=== PATIENT | male | born 1950 | race Caucasian/White ===

== ENCOUNTER → 2017-06-23 | Day surgery (SDC) | payer OTHER ==
[2017-06-16 08:25] VITALS: Ht 177.8 cm; Wt 127.3 kg
[~2017-06-23] VITALS: Ht 177.8 cm; Wt 127.3 kg
[~2017-06-23] MED LIST: CARV6.252 PO; ENOX120I SQ; FLUO40CA8 PO; FURO40TA3 PO; LIDOCAINE HCL 2% 2 ML VIAL (20MG/ML) ONE; LISI-461 PO; PROPOFOL IV EMULSION 10 MG/ML 20 ML VIAL IV ONE; ROSU5TAB PO; SODIUM CHLORIDE 0.9% 500ML 500 ML IV ONE; WARF1TAB6 PO; WARF7.5T4 PO
--- NOTE | 2017-06-23 08:54 | Endo History and Physical ---
History & Physical Date of Service: Jun 23, 2017. Chief Complaint: History of polyps Referring Physician: Dr. Jose Gore History of Present Illness 67 yo presenting for surveillance of colonic adenomatous polyps. On blood thinners, stopped with bid lovenox 2 days ago. Asymptomatic from GI standpoint Past Medical History Diabetes, Reflux, Sleep Apnea, Hypertension, Thrombophlebitis Past Surgical History Hx Cardiac Surgery: No Hx Internal Defibrillator: No Hx Pacemaker: No Hx Abdominal Surgery: No Hx of Implantable Prosthesis: No Hx Post-Op Nausea and Vomiting: No Hx Cancer Surgery: No Hx Thoracic Surgery: No Hx Orthopedic: Yes (RT/LEFT CTR, KNEE CYST REMOVED) Hx Urinary Tract Surgery: No Family History None Social History Smoking Status: Former Smoker Hx Substance Use: No Hx Alcohol Use: Yes (OCCASIONALLY) Allergies Coded Allergies: No Known Allergies (Verified , 06/23/17) Current Medications Reported Home Medications Medications Dose Route/Sig Max Daily Dose Days Date Category Lovenox (Enoxaparin Sodium) 120 Mg/0.8 Ml Inj 120 Mg SQ Q12H 06/23/17 Reported Jantoven (Warfarin Sodium) 7.5 Mg Tab 7.5 Mg PO Q2D 06/16/17 Reported Jantoven (Warfarin Sodium) 1 Mg Tab 0.5 Mg PO Q2D 06/16/17 Reported Crestor (Rosuvastatin Calcium) 5 Mg Tab 5 Mg PO 3XWK 06/16/17 Reported Zestril (Lisinopril) 10 Mg Tab 10 Mg PO QAM 06/16/17 Reported Prozac (Fluoxetine HCl) 40 Mg Cap 40 Mg PO QAM 06/16/17 Reported Coreg (Carvedilol) 6.25 Mg Tab 6.25 Mg PO BID 02/05/14 Reported Lasix (Furosemide) 40 Mg Tab 40 Mg PO QAM 02/05/14 Reported Vital Signs Weight (Kilograms): 127.27 Height (Feet): 5 Height (Inches): 10 Date Time Temp Pulse Resp B/P (MAP) Pulse Ox O2 Delivery O2 Flow Rate FiO2 06/23/17 08:48 37 56 20 125/73 (90) 96 Room Air Physical Exam General Appearance: WD/WN, no apparent distress, + obese Respiratory/Chest: Auscultation: breath sounds normal, CTA except as noted, no wheezing Cardiovascular: Apical Impulse: not displaced Heart Auscultation: RRR, normal S1, normal S2 Abdomen: Bowel Sounds: normal Inspection & Palpation: soft, non-distended Assessment and Plan 67 yo presenting for surveillance of colonic adenomatous polyps. -Plan for Colonoscopy for polyp follow up.
--- NOTE | 2017-06-23 09:35 | GI REPORT ---
Procedure Date: 06/23/2017 9:06 AM Procedure: Colonoscopy Indications: High risk colon cancer surveillance: Personal history of colonic polyps Medicines: Monitored Anesthesia Care Complications: No immediate complications. Estimated blood loss: None. Estimated Blood Loss: Estimated blood loss: none. Procedure: Pre-Anesthesia Assessment: - Pre-Anesthesia Assessment: - Prior to the procedure, a History and Physical was performed, and patient medications, allergies and sensitivities were reviewed. The patient's tolerance of previous anesthesia was reviewed. Please see [facility] for complete details. - The risks and benefits of the procedure and the sedation options and risks were discussed with the patient. All questions were answered and informed consent was obtained. - Patient identification and proposed procedure were verified prior to the procedure by the physician and the nurse. The procedure was verified in the pre-procedure area in the procedure room. After obtaining informed consent, the endoscope was passed carefully and meticuously under direct vision and only advanced when the lumen was clearly identified, C02 insuflation was utilized throughout the entirity of the procedure. Throughout the procedure, the patient's blood pressure, pulse, and oxygen saturations were monitored continuously. After I obtained informed consent, the scope was passed under direct vision. Throughout the procedure, the patient's blood pressure, pulse, and oxygen saturations were monitored continuously. The scope was introduced through the anus and advanced to the cecum, identified by appendiceal orifice and ileocecal valve. The colonoscopy was performed without difficulty. The patient tolerated the procedure well. The quality of the bowel preparation was fair. Findings: A 6 mm polyp was found in the descending colon. The polyp was sessile. The polyp was removed with a cold snare. Resection and retrieval were complete. To prevent bleeding post-intervention, one hemostatic clip was successfully placed (MR conditional). There was no bleeding during, or at the end, of the procedure. A 3 mm polyp was found in the rectum. The polyp was sessile. The polyp was removed with a jumbo cold forceps. Resection and retrieval were complete. Multiple small-mouthed diverticula were found in the sigmoid colon. Internal hemorrhoids were found during retroflexion. Impression: - Preparation of the colon was fair. - One 6 mm polyp in the descending colon, removed with a cold snare. Resected and retrieved. Clip (MR conditional) was placed. - One 3 mm polyp in the rectum, removed with a jumbo cold forceps. Resected and retrieved. - Diverticulosis in the sigmoid colon. - Internal hemorrhoids. Recommendation: - Await pathology results. - Discharge patient to home (with escort). - Repeat colonoscopy in 5 years for surveillance based on pathology results. - Return to referring physician as previously scheduled. Eron Ochoa MD 06/23/2017 9:34:41 AM This report has been signed electronically. Note Initiated On: 06/23/2017 9:06 AM I attest to the content of the Intraoperative Record and orders documented therein, exceptions below
--- NOTE | 2017-06-23 09:43 | Discharge Instructions ---
Endoscopy Patient Instructions Date / Procedure(s) Performed Jun 23, 2017. Colonoscopy Allergy Information Coded Allergies: No Known Allergies (Verified , 06/23/17) Discharge Date / Findings Jun 23, 2017. Findings: A 6 mm polyp was found in the descending colon. The polyp was sessile. The polyp was removed with a cold snare. Resection and retrieval were complete. To prevent bleeding post-intervention, one hemostatic clip was successfully placed (MR conditional). There was no bleeding during, or at the end, of the procedure. A 3 mm polyp was found in the rectum. The polyp was sessile. The polyp was removed with a jumbo cold forceps. Resection and retrieval were complete. Multiple small-mouthed diverticula were found in the sigmoid colon. Internal hemorrhoids were found during retroflexion. Impression: - Preparation of the colon was fair. - One 6 mm polyp in the descending colon, removed with a cold snare. Resected and retrieved. Clip (MR conditional) was placed. - One 3 mm polyp in the rectum, removed with a jumbo cold forceps. Resected and retrieved. - Diverticulosis in the sigmoid colon. - Internal hemorrhoids. Recommendation: - Await pathology results. - Discharge patient to home (with escort). - Repeat colonoscopy in 5 years for surveillance based on pathology results. - Return to referring physician as previously scheduled. - Resume anticoagulation per Managing providers. Medication Instructions Stopped Medication(s): Coumadin was stopped and bridged with Lovenox. Provider Instructions Activity Restrictions - No exercising or heavy lifting for 24 hours. - Do not drink alcohol the day of the procedure. - Do not drive a car or operate machinery until the day after the procedure. - Do not make any important decisions or sign important papers in 24 hours after the procedure. Following Day: - Return to full activity which may include returning to work/school. Diet Start your diet with liquids and light foods (jello, soup, juice, toast). Then eat your usual diet if not nauseated. Treatment For Common After Affects For mild abdominal pain, bloating, or excessive gas: - Rest - Eat lightly - Lie on right side Follow-Up Information Follow-up with Dr. Jose Gore as scheduled Anesthesia Information What You Should Know You have had a procedure that required some medicine to reduce anxiety and discomfort. This treatment is called moderate sedation. After receiving the treatment, you may be sleepy, but you will be able to breathe on your own. The effects of the treatment may last for several hours. Follow these instructions along with Activity/Diet recommendations noted above: * Do NOT do anything where dizziness or clumsiness would be dangerous. * Rest quietly at home today, then you can be up and about tomorrow. * Have a responsible person stay with you the rest of today. * You may have had an I.V. today. If so, you may take the dressing off later today. Recommendations Call your doctor if: * Trouble breathing * Continuous vomiting for more than 24 hours * Temperature above 101 degrees * Severe abdominal pain or bloating * Pain not relieved by pain medicine ordered * There is increased drainage or redness from any incision * A large amount of rectal bleeding greater than 2-3 tablespoons. (If you had a polyp/s removed or have hemorrhoids, a small amount of blood - from the rectum is to be expected.) * You have any unanswered questions or concerns. IN THE EVENT OF A SERIOUS EMERGENCY, GO TO THE NEAREST EMERGENCY ROOM Your discharge instructions were prepared by provider Eron Ochoa. Patient Instructions Signature Page Elias Cerda Patient (or Guardian) Signature/Date: I have read and understand the instructions given to me by my caregivers. Caregiver/RN/Doctor Signature/Date: The above-named patient and/or guardian has received patient instructions on this date. + Original Patient Signature Page (only) stays with chart. Please make copy for patient.
--- NOTE | 2017-06-23 10:08 | Anesthesiology Progress Note ---
Anesthesia Post Op Note Date & Time Jun 23, 2017 at 10:08 Vital Signs Pain Intensity: 0 Vital Signs Past 12 Hours Date Time Temp Pulse Resp B/P (MAP) Pulse Ox O2 Delivery O2 Flow Rate FiO2 06/23/17 09:54 51 20 98/59 (72) 97 Room Air 06/23/17 09:38 53 20 104/52 (69) 95 Room Air 06/23/17 08:48 37 56 20 125/73 (90) 96 Room Air Notes Mental Status: alert / awake / arousable, participated in evaluation Pt Amnestic to Procedure: Yes Nausea / Vomiting: adequately controlled Pain: adequately controlled Airway Patency, RR, SpO2: stable & adequate BP & HR: stable & adequate Hydration State: stable & adequate Anesthetic Complications: no major complications apparent
[2017-06-23 10:09] VITALS: BP 117/58; PULSE 49; O2SAT 96
== END | disposition home or self-care (01) ==
LOC: C.GI 08:11
PROVIDERS: ATTEND Internal Medicine
DX: Z12.11 Encounter for screening for malignant neoplasm of colon (principal); D12.4 Benign neoplasm of descending colon; D12.8 Benign neoplasm of rectum; Z86.010 Personal history of colon polyps; K57.30 Diverticulosis of large intestine without perforation or abscess without bleeding; K64.8 Other hemorrhoids; I11.0 Hypertensive heart disease with heart failure; I50.9 Heart failure, unspecified; K21.9 Gastro-esophageal reflux disease without esophagitis; D68.51 Activated protein C resistance; E11.9 Type 2 diabetes mellitus without complications; G47.33 Obstructive sleep apnea (adult) (pediatric); E66.9 Obesity, unspecified; Z68.41 Body mass index [BMI] 40.0-44.9, adult; Z99.89 Dependence on other enabling machines and devices; Z86.711 Personal history of pulmonary embolism; Z86.72 Personal history of thrombophlebitis; Z87.891 Personal history of nicotine dependence; Z79.01 Long term (current) use of anticoagulants

== ENCOUNTER 2020-05-03 10:18 | Observation (INO) ==
--- NOTE | 2020-02-26 13:33 | PAT Medication Instructions ---
Medication Instructions Date of Service February 26, 2020 Home Medications digoxin 250 mcg PO QAM duloxetine 60 mg PO QAM ezetimibe 10 mg PO QAM furosemide 40 mg PO QAM glimepiride 1 mg PO QAM lisinopril 5 mg PO QAM paroxetine HCl 40 mg PO QAM warfarin 5 mg PO QAM ASK your prescriber and surgeon warfarin 5 mg PO QAM DO NOT take the morning of surgery furosemide 40 mg PO QAM glimepiride 1 mg PO QAM lisinopril 5 mg PO QAM Take morning of surgery With a small sip of water, OTHERWISE NOTHING TO EAT OR DRINK AFTER MIDNIGHT: digoxin 250 mcg PO QAM duloxetine 60 mg PO QAM ezetimibe 10 mg PO QAM paroxetine HCl 40 mg PO QAM Other Notes If you have any questions please call us at [phone] or [phone] or [phone] or [phone]
--- NOTE | 2020-02-28 10:43 | Anesthesiology Consultation ---
Date of Service February 28, 2020 Assessment & Plan (1) Encounter for pre-operative examination: - Preop CXR: possible nodule. Awaiting response from PCP if further imaging needed prior to surgery from their perspective. - Per assessment on 02/27: Travel screen negative. No known COVID-19 positive contacts or current COVID-19 related symptoms. Surgeon arranging preop COVID testing (scheduled 03/06; [place]). Awaiting results. - Check BSG, coags AM DOS (warfarin instructions per surgeon/prescriber; per patient, planning for lovenox bridging) - Cardiology note: 12/06/19: "I have reviewed the clinical history, medications and relevant noninvasive testing. Based on these findings, I would consider the patient to be low risk from a cardiac standpoint for the planned knee surgery." History Surgery Operation Date: 03/12/20 10:40 Proposed Procedures p Right Total Knee Arthroplasty - Jn Milner MD Height/Weight Height: 5 ft 10 in Weight: 143.2 kg Allergies Allergy/AdvReac Type Severity Reaction Status Date / Time metformin AdvReac Diarrhea Verified 02/28/20 10:51 Ffrxyfi-Ucr-Jiz Reductase AdvReac Fatigue, Verified 02/28/20 10:51 Inhibitor weakness Medications Home Medications Medication Instructions Recorded Confirmed Last Taken digoxin 250 mcg PO QAM 02/23/20 02/23/20 Unknown duloxetine 60 mg PO QAM 02/23/20 02/23/20 Unknown ezetimibe 10 mg PO QAM 02/23/20 02/23/20 Unknown furosemide 40 mg PO QAM 02/23/20 02/23/20 Unknown glimepiride 1 mg PO QAM 02/23/20 02/23/20 Unknown lisinopril 5 mg PO QAM 02/23/20 02/23/20 Unknown paroxetine HCl 40 mg PO QAM 02/23/20 02/23/20 Unknown warfarin 5 mg PO QAM 02/23/20 02/23/20 Unknown Past Medical History Medical History Acid reflux occasional Anxiety Atrial fibrillation Follows with cardiology (Dr. FON[facility]) CHF (congestive heart failure) Diabetes mellitus, type 2 NIDDM DVT (deep venous thrombosis) RLE x2 (most recent 2014)- on warfarin Factor 5 Leiden mutation, heterozygous Hiatal hernia History of CHF (congestive heart failure) History of nephrolithiasis 2009 Hyperlipidemia Hypertension Sleep apnea CPAP Spasm of muscle of lower back occasionally Exercise / Class Metabolic Activity III < 4 Walking/Shop/Light housework (one flight of stairs (no chest pain, occasional SOB)) Past Family History Family History Sister Diabetes Past Surgical History Surgical History History of arthroscopy left knee History of cardiac cath x2> most recent 2017- no stents History of carpal tunnel release bilat History of colonoscopy History of esophagogastroduodenoscopy (EGD) History of tonsillectomy History of tooth extraction Hx of bilateral cataract extraction Hx of vasectomy x2 [place] teeth extracted Past Anesthesia History No Hx of Anesthesia Complications and No Family Hx of Anesthesia Complications History of PONV No Hx of PONV and No Hx of Motion Sickness Social History Smoking Status: Former smoker Do You Dip or Chew Tobacco: Yes (1 can/week (advised NPO AM DOS)) Smoking End Date: Quit 25 yrs ago (hx tobacco use x 20 years) Hx Alcohol Use: Yes Alcohol type: beer alcohol intake frequency: a few times a week Hx Substance Use: No substance use type: does not use Review of Systems Patient denies chest pain, shortness of breath, fever, chills, cough, wheezing, palpitations. Physical Exam Vital Signs VITALS BP 112/75 P 80 TEMP 98.4 SP02 94%RA RESP 16 PHYSICAL Full neck and c-spine range of motion. Full TMJ range of motion. TMD 3 finger breaths Mallampati Score 2 Dentition: right front incisor repaired tooth + caps on molars, poor dentition Lungs: clear throughout to auscultation Cardiac: regular rate and rhythm with occasional beat, no murmurs noted Spine: normal Carotid arteries: negative bruit Extremities: no edema Short, thick neck Testing Laboratory Results 02/28/20 11:05 02/28/20 11:05 PT 29.7 Seconds (9.0-12.0) H 02/28/20 11:05 INR 3.0 (0.9-1.1) H 02/28/20 11:05 APTT 40.7 Seconds (21.0-31.0) H 02/28/20 11:05 Hemoglobin A1c 7.8 % (4.5-5.6) H 02/28/20 11:05 Blood Type A Negative 02/28/20 11:05 Antibody Screen NEGATIVE 02/28/20 11:05 Preop labs to be forwarded to PCP for continuity of care. Surgeon's office made aware of elevated glucose/A1C* Electrocardiogram Date: 02/28/20 Findings: + AFIB @ (87) Chest X-Ray Date: 02/28/20 FINDINGS: Mild interstitial coarsening is likely chronic. Cardiac silhouette is upper limits of normal in size. No pneumothorax, pleural effusion, airspace consolidation or overt pulmonary edema. Mild hyperinflation with diaphragmatic flattening. Degenerative changes of the shoulders and spine. 7 mm nodular density projects over the right lung apex. Age-indeterminate 25% anterior endplate compression deformity of L1 is new from comparison. No appreciable retropulsion. IMPRESSION: No acute process. Age-indeterminate L1 compression deformity, new from 2008. 7 mm nodular density projecting over the right lung apex may reflect summation density versus pulmonary nodule. Echocardiogram Date: 12/02/16 Suboptimal endocardial delineation precludes a proper assessment, however probable mild cLVH, normal LV cavity size and preserved LV systolic function. EF equals 55%. RVSP cannot be estimated. No significant valvular disease. Cardiac Catheterization Date: 06/16/16 Normal-appearing epicardial coronary arteries with a dominant right coronary artery. Highly tortuous left circumflex and RCA. Mild to moderate LV systolic dysfunction, EF 35 to 40%. Aggressive lifestyle modification and medical management recommended. EF normalized on subsequent echo 12/02/2016.
--- NOTE | 2020-02-28 11:43 | XRay Report ---
XR chest Pre-admission PA/Lat HISTORY: 70 years-old Male pat preoperative exam. No acute chest complaints COMPARISON: Chest radiograph and CTA chest 12/03/2007 TECHNIQUE: PA and lateral views of the chest FINDINGS: Mild interstitial coarsening is likely chronic. Cardiac silhouette is upper limits of normal in size. No pneumothorax, pleural effusion, airspace consolidation or overt pulmonary edema. Mild hyperinflat ion with diaphragmatic flattening. Degenerative changes of the shoulders and spine. 7 mm nodular dens ity projects over the right lung apex. Age-indeterminate 25% anterior endplate compression deformity of L1 is new from comparison. No appreciable retropulsion. IMPRESSION: 1. No acute process. 2. Age-indeterminate L1 compression deformity, new from 2008. 3. 7 mm nodular density projecting over the right lung apex may reflect summation density versus pulm onary nodule. ACT 112: Negative or not required by law. The above report was generated using voice recognition software. It may contain grammatical, syntax o r spelling errors. Electronically signed by: Ismael Jalloh M.D. 02/28/2020 11:42 AM
[2020-02-28 12:58] LABS: Basophils # (auto) 0.03 K/uL (0-0.2); Basophils % (auto) 0.3 %; Eosinophils % (auto) 1.1 %; Hematocrit (blood only) 44.8 % (42-52); Hemoglobin 15.1 g/dL (14.0-18.0); Immature Granulocytes # (auto) 0.05 K/uL (0.00-0.02); Immature Granulocytes % (auto) 0.5 %; Lymphocytes # (auto) 1.91 K/uL (1.2-3.4); Lymphocytes % (auto) 20.7 %; Mean Corpuscular Hemoglobin 33.3 pg (25-34); Mean Corpuscular Hgb Conc 33.7 g/dL (32-36); Mean Corpuscular Volume 98.9 fL (80-100); Mean Platelet Volume 9.4 fL (7.4-10.4); Monocytes # (auto) 0.99 K/uL (0.11-0.59); Monocytes % (auto) 10.7 %; Neutrophils # (auto) 6.14 K/uL (1.4-6.5); Neutrophils % (auto) 66.7 %; Platelet Count 229 K/uL (130-400); RDW Coefficient of Variation 13.6 % (11.5-14.5); RDW Standard Deviation 48.9 fL (36.4-46.3); Red Blood Count 4.53 M/uL (4.7-6.1); White Blood Count 9.22 K/uL (4.8-10.8)
[2020-02-28 13:14] LABS: Partial Thromboplastin Ratio 1.5; Partial Thromboplastin Time 40.7 Seconds (21.0-31.0); Prothrombin Time 29.7 Seconds (9.0-12.0)
[2020-02-28 13:34] LABS: Estimated Average Glucose 177 mg/dl; Hemoglobin A1C 7.8 % (4.5-5.6)
[2020-02-28 14:03] LABS: BUN Creatinine Ratio 16.4 (10-20); Calcium 9.4 mg/dl (8.5-10.1); Creatinine Clr Calc Pharmacy 83.5 ml/min; Est GFR (African American) 70.9; Est GFR (Non-African American) 61.1; Potassium 4.5 mmol/L (3.5-5.1)
--- NOTE | 2020-02-28 14:23 | Electrocardiogram Report ---
Test Reason : Blood Pressure : / mmHG Vent. Rate : 087 BPM Atrial Rate : 117 BPM P-R Int : 000 ms QRS Dur : 086 ms QT Int : 332 ms P-R-T Axes : 000 062 042 degrees QTc Int : 399 ms Atrial fibrillation Abnormal ECG When compared with ECG of 03-DEC-2007 11:44, Atrial fibrillation has replaced Sinus rhythm Confirmed by Neil Bañuelos ([id number]) on 02/28/2020 2:23:07 PM Referred By: Jn Milner Confirmed By:Neil Bañuelos
--- NOTE | 2020-04-12 13:21 | Anesthesiology Consultation ---
Date of Service April 12, 2020 Assessment & Plan Chart Review Chart Review: Acceptable Risk for Surgery and Patient NOT seen in Pre Admission Testing History Surgery Operation Date: 05/03/20 08:50 Proposed Procedures p Right Total Knee Arthroplasty - Jn Milner MD Height/Weight Height: 5 ft 10 in Weight: 143.2 kg Allergies Allergy/AdvReac Type Severity Reaction Status Date / Time Irxcvqr-Xhi-Olq Reductase AdvReac Intermediate Fatigue, Verified 04/12/20 11:30 Inhibitor weakness metformin AdvReac Mild Diarrhea Verified 04/12/20 11:30 Medications Home Medications Medication Instructions Recorded Confirmed Last Taken digoxin 250 mcg PO QAM 02/23/20 04/12/20 Unknown duloxetine 60 mg PO QAM 02/23/20 04/12/20 Unknown ezetimibe 10 mg PO QAM 02/23/20 04/12/20 Unknown furosemide 40 mg PO QAM 02/23/20 04/12/20 Unknown glimepiride 1 mg PO QAM 02/23/20 04/12/20 Unknown lisinopril 5 mg PO QAM 02/23/20 04/12/20 Unknown paroxetine HCl 40 mg PO QAM 02/23/20 04/12/20 Unknown warfarin 5 mg PO QAM 02/23/20 04/12/20 Unknown Past Medical History Medical History (Updated 04/12/20 @ 11:38 by Rona Bonilla, JAYMIE) Acid reflux occasional Anxiety Atrial fibrillation Follows with cardiology (Dr. FONSECA [facility]) CHF (congestive heart failure) Diabetes mellitus, type 2 NIDDM DVT (deep venous thrombosis) RLE x2 (most recent 2014)- on warfarin Factor 5 Leiden mutation, heterozygous Hiatal hernia History of CHF (congestive heart failure) History of nephrolithiasis 2009 Hyperlipidemia Hypertension Morbid obesity with BMI of 45.0-49.9, adult Sleep apnea CPAP Spasm of muscle of lower back occasionally Past Family History Family History Sister Diabetes Past Surgical History Surgical History History of arthroscopy left knee History of cardiac cath x2> most recent 2017- no stents History of carpal tunnel release bilat History of colonoscopy History of esophagogastroduodenoscopy (EGD) History of tonsillectomy History of tooth extraction Hx of bilateral cataract extraction Hx of vasectomy x2 [place] teeth extracted Social History Smoking Status: Former smoker tobacco type: smokeless tobacco Do You Dip or Chew Tobacco: Yes (1 can/week (advised NPO AM DOS)) Smoking End Date: Quit 25 yrs ago (hx tobacco use x 20 years) Hx Alcohol Use: Yes Alcohol type: beer alcohol intake frequency: a few times a week Hx Substance Use: No substance use type: does not use Testing Laboratory Results 02/28/20 11:05 02/28/20 11:05 PT 29.7 Seconds (9.0-12.0) H 02/28/20 11:05 INR 3.0 (0.9-1.1) H 02/28/20 11:05 APTT 40.7 Seconds (21.0-31.0) H 02/28/20 11:05 Hemoglobin A1c 7.8 % (4.5-5.6) H 02/28/20 11:05 Blood Type A Negative 02/28/20 11:05 Antibody Screen NEGATIVE 02/28/20 11:05 Electrocardiogram Date: 02/28/20 Findings: + AFIB @ (87) Chest X-Ray Date: 02/28/20 FINDINGS: Mild interstitial coarsening is likely chronic. Cardiac silhouette is upper limits of normal in size. No pneumothorax, pleural effusion, airspace consolidation or overt pulmonary edema. Mild hyperinflation with diaphragmatic flattening. Degenerative changes of the shoulders and spine. 7 mm nodular density projects over the right lung apex. Age-indeterminate 25% anterior endplate compression deformity of L1 is new from comparison. No appreciable retropulsion. IMPRESSION: No acute process. Age-indeterminate L1 compression deformity, new from 2008. 7 mm nodular density projecting over the right lung apex may reflect summation density versus pulmonary nodule. Echocardiogram Date: 12/02/16 Suboptimal endocardial delineation precludes a proper assessment, however probable mild cLVH, normal LV cavity size and preserved LV systolic function. EF equals 55%. RVSP cannot be estimated. No significant valvular disease. Cardiac Catheterization Date: 06/16/16 Normal-appearing epicardial coronary arteries with a dominant right coronary artery. Highly tortuous left circumflex and RCA. Mild to moderate LV systolic dysfunction, EF 35 to 40%. Aggressive lifestyle modification and medical management recommended. EF normalized on subsequent echo 12/02/2016.
--- NOTE | 2020-04-27 14:01 | History and Physical Report ---
DATE OF ADMISSION: 05/03/2020 CHIEF COMPLAINT: Bilateral knee pain and discomfort, right side greater than the left. HISTORY OF PRESENT ILLNESS: A 70-year-old gentleman from [place], who presents specifically for surgical treatment of his knees. He has got a long history of bilateral knee pain and discomfort that has gotten worse over time. He has been through extensive conservative treatment provided elsewhere. The treatment does not work anymore. He has had injections, which helped very temporarily. He is not interested in further conservative care. He has seen his dobby loom weaver and cleared for surgery and wants to proceed with a right knee replacement. PAST MEDICAL HISTORY: Significant for: 1. Congestive heart failure, recently cleared by [facility] 12/22/2019. 2. Hypertension. 3. Elevated cholesterol. PREVIOUS SURGERIES: Includes: 1. A history of a DVT with a factor V Leiden abnormality with 1 PE, currently on Coumadin. 2. Factor V Leiden abnormality. 3. Sleep apnea. 4. Diabetes x2, 3 years. 5. Obesity, BMI of 45. 6. Hiatal hernia. PAST SURGICAL HISTORY: Include: 1. Carpal tunnel release. 2. Cataract surgery. ALLERGIES: None. CURRENT MEDICINES: 1. Lisinopril. 2. Cardura. 3. Digoxin. 4. Amaryl. 5. Ezetimibe. 6. Paxil. 7. Coumadin 5 mg a day. SOCIAL HISTORY: This is a 70-year-old male. He lives in [place]. He is . Five drinks per week. Does not smoke. FAMILY HISTORY: Noncontributory. REVIEW OF SYSTEMS: Significant for diabetes. Denies any current chest pain or shortness of breath. Does have a history of 2 DVTs and 1 PE in the past. He is on chronic Coumadin with a factor V Leiden abnormality. PHYSICAL EXAMINATION: GENERAL: Shows a pleasant, middle-aged male, looks little older than his stated age. Fairly large gentleman. HEENT: Benign. NECK: Supple, no lymphadenopathy. LUNGS: Clear to auscultation. HEART: Has a regular rate and rhythm. ABDOMEN: Soft, nontender, nondistended. EXTREMITIES: Grossly neurovascularly intact except as follows. Examination of both knees reveal the patient walks with a bit of a waddling gait. He has got varus alignment to both knees. He has got some mild diffuse edema distally on both sides. No stasis changes. Range of motion is pretty symmetric with about 5-10 degrees short of full extension to about 120 degrees of flexion bilaterally. No pain with hip motion. He is neurologically intact. X-RAYS: X-rays of both knees were reviewed. Shows advanced bilateral knee DJD. He has got complete loss of medial joint space. The right side is a little bit worse than the left. ASSESSMENT: A 70-year-old male with a history of multiple underlying medical comorbidities including history of congestive heart failure in the past, history of deep venous thrombosis, pulmonary embolism in the past and Factor V Leiden abnormality along with hypertension, elevated cholesterol and obesity with advanced bilateral knee degenerative joint disease. He has failed conservative treatment and would like to proceed with right knee. He has seen his dobby loom weaver and cleared for surgery. PLAN: We will take him to the operating room and do a right total knee replacement. The risks and benefits of this procedure were explained to the patient including but not limited to DVT, PE, , infection, neurological injury, vascular injury, bleeding problem, pain, limited range of motion, stiffness, failure to relieve symptoms, incomplete relief of symptoms, need for further surgery in future, fracture, leg length inequality, nerve palsy, etc. The patient understands and desires to proceed. Informed consent was obtained. He will need to hold his Coumadin 5 days preop. We will likely use Lovenox postoperatively until his Coumadin is more therapeutic. We will get a stat PT and INR the morning of surgery. He will use insulin sliding scale coverage in the hospital. As far as discharge plans, he is planning to be discharged to home using the home health.
[~2020-05-03 10:18] MED LIST changes: +ACETAMINOPHEN 500 MG TAB PO SCH; +BUPIVACAINE 0.5 % 5 MG/1 ML PF 10ML VIAL ONE; +BUPIVACAINE LIPOSOME/PF 266 MG, BUPIVACAINE/EPINEPHRINE 50 ML, SODIUM CHLORIDE 0.9% 30 ... INFIL SCH; -CARV6.252 PO; -ENOX120I SQ; +FAMOTIDINE 20 MG TAB PO SCH; -FLUO40CA8 PO; -FURO40TA3 PO; +GABAPENTIN 300 MG CAP PO SCH; -LIDOCAINE HCL 2% 2 ML VIAL (20MG/ML) ONE; -LISI-461 PO; +LR 500ML BOLUS, THEN 15ML/HR IV SCH; +LR 60ML/HR IV SCH; -PROPOFOL IV EMULSION 10 MG/ML 20 ML VIAL IV ONE; +ROPIVACAINE 0.5% 5 MG/ML 30 ML VIAL ONE; -ROSU5TAB PO; -SODIUM CHLORIDE 0.9% 500ML 500 ML IV ONE; +Scopolamine CHECK PATCH PLACEMENT SCH; +TRANEXAMIC ACID 1,000 MG **IV Intra-op IV SCH; -WARF1TAB6 PO; -WARF7.5T4 PO
[2020-05-03] MEDS ORDERED: ACETAMINOPHEN 500 MG TAB ONE (10:36)
[2020-05-03] MEDS ORDERED: FAMOTIDINE 20 MG TAB ONE (10:36)
[2020-05-03] MEDS ORDERED: TRANEXAMIC ACID / 0.7% NACL 1000MG/100ML BAG IV ONE (10:37)
[2020-05-03] MEDS ORDERED: SCOPOLAMINE 1.5 MG TDSY TD ONE (10:37)
[2020-05-03] MEDS ORDERED: GABAPENTIN 300 MG CAP ONE (10:37)
[2020-05-03] MEDS ORDERED: ceFAZolin 2,000 MG/15 ML IV PUSH IV ONE (10:38)
--- NOTE | 2020-05-03 10:39 | History & Physical Bridge Note ---
Date of Service May 03, 2020 History & Physical Bridge Note I have examined the patient, reviewed the History & Physical and in the interval since the performance of the History & Physical I have noted the following changes of clinical significance: no changes noted
[2020-05-03] MEDS ORDERED: ceFAZolin 3000MG/72.5 ML BAG IV ONE (10:59)
[2020-05-03 11:09] LABS: Partial Thromboplastin Ratio 0.9; Partial Thromboplastin Time 24.2 Seconds (21.0-31.0); Prothrombin Time 10.4 Seconds (9.0-12.0)
[2020-05-03] MEDS ORDERED: MIDAZOLAM HCL 1 MG/ML 2ML VIAL ONE (11:29)
[2020-05-03] MEDS ORDERED: BUPIVACAINE LIPOSOME 1.3% 266 MG/20 ML VIAL ONE (13:01)
[2020-05-03] MEDS ORDERED: EPINEPHrine INJ 1 MG/ML AMP ONE (13:01)
[2020-05-03] MEDS ORDERED: BACITRACIN INJ 50,000 UNIT VIAL ONE (13:01)
[2020-05-03] MEDS ORDERED: SODIUM CHLORIDE 0.9% PF 50 ML VIAL ONE (13:01)
[2020-05-03] MEDS ORDERED: BUPIVACAINE 0.25% 30 ML VIAL ONE (13:01)
[2020-05-03] MEDS ORDERED: ONDANSETRON INJ 2 MG/ML 2 ML VIAL IV PRN ×2 (13:15→16:15)
[2020-05-03] MEDS ORDERED: KETOROLAC 30 MG/ML VIAL IV PRN (13:15)
[2020-05-03] MEDS ORDERED: HYDROmorphone INJ 1 MG/ML SYRINGE IV PRN (13:15)
[2020-05-03] MEDS ORDERED: ePHEDrine sulfate 50 MG/ML AMP IV PRN (13:15)
[2020-05-03] MEDS ORDERED: ATROPINE SULFATE 0.1 MG/ML 10ML SYR IV PRN (13:15)
[2020-05-03] MEDS ORDERED: VANCOMYCIN HCL 1000MG/20ML VIAL ONE (13:21)
[2020-05-03] MEDS ORDERED: PROPOFOL IV EMULSION 10 MG/ML 20 ML VIAL IV ONE (13:44)
[2020-05-03] MEDS ORDERED: LIDOCAINE HCL 2% 2 ML VIAL/AMP(20MG/ML) INFIL ONE (13:44)
[2020-05-03] MEDS ORDERED: ONDANSETRON INJ 2 MG/ML 2 ML VIAL ONE (14:55)
[2020-05-03] MEDS ORDERED: PHENYLEPHRINE 100MCG/ML 5ML SYR ONE (14:55)
--- NOTE | 2020-05-03 15:20 | Operative Report ---
Post Operative Report Pre & Post Diagnosis Operation Date: 05/03/20 12:30 Pre-Op Diagnosis: Right Knee Advanced Degenerative Joint Disease Post-Op Diagnosis: Right Knee Advanced Degenerative Joint Disease I identified the patient and participated in the time-out.: Yes Procedure Operation Date: 05/03/20 12:30 Actual Procedures p Right Total Knee Arthroplasty(Right) - Jn Milner MD Surgeon Jn Milner MD Observer Helper GAGAN Chappell Estimated Blood Loss 50 Findings Consistent with Post-Op Diagnosis Findings revealed advanced right knee medial compartment DJD with grade 4 [id number] disease. He had some spotty grade 4 changes laterally as well as in the patellofemoral joint. He had a varus deformity to his knee. He had a moderate-sized joint effusion. Fluids 1700 cc. Specimens Right knee sent for pathology. Drains None. Anesthesia Type Spinal MAC Complications none Disposition Accompanied Patient To Recovery: No Disposition: Recovery Room Indications Patient is a 70-year-old gentleman said a long history of bilateral knee pain discomfort right side a bit worse than the left. Has been through extensive conservative treatment which became less successful over time. X-rays show advanced right knee DJD. He elected proceed with surgical treatment. Description of Procedure Operative implants consist of: 1 Biomet Vanguard size 70 right posterior stabilized femoral component. 2. Biomet size 75 tibial tray. 3. 10 mm posterior stabilized polyethylene insert. 4. 31 x 8 all polypatella. The patient was taken the operating room identified and placed on the operating table supine position with all contact areas were properly padded. IV antibiotics arrived by anesthesia team. A spinal anesthetic and abductor canal block had been provided holding area. Sosa catheter was placed in sterile fashion. A right thigh turn was then placed in the right lower extremity was then prepped and draped in usual sterile fashion. The right leg was elevated exsanguinated with use of an Esmarch and tourniquet placed at 300 mmHg. An anterior approach to the right knee was then performed to longitudinal incision centered over the patella. Sharp dissection was got through subcutaneous tissue down to the extensor mechanism. A medial parapatellar arthrotomy incision was made. Some subperiosteal dissection was carried out medially. The fat pad was resected from each patella tendon. Lateral patellofemoral ligament was released. Patella subluxated laterally and the knee was flexed. The osteophytes were taken off the distal femur. The ACL and PCL were then released from distal femur the tibia subluxated anteriorly. The external tibial alignment jig was then placed in the interface the tibia and adjusted 14 mm medially. Proximal tibial cut was made to remove about a millimeter or 2 of bone from the most deficient aspect medial tibial plateau. The tibia was sized to a size 75. Attention drawn the femur. The distal femur turned the sharp drop with intramedullary canal was suction. A right 5 degree valgus cutting guide was placed. The distal femoral cutting block was pinned in place. Distal femoral cut was made to take an additional 3 mm of bone off distal femur. The femur was then sized to a size 70. The AP cutting block was pinned parallel to the epicondylar axis which was 3 degrees of external rotation. Anterior cut, anterior chamfer, posterior cut, posterior chamfer cuts were made. Box cutting guide was placed in just slight lateral and the box cut was made. The knee was flexed. The remnants of the medial lateral menisci were excised. The osteophytes were taken off the posterior aspect the femur. A trial femoral component was placed. The tibial tray was pinned in maximum external rotation and the drill and stem punch used to create defect in proximal tibia for the tibial tray. Knee was then trialed and the 10 mm insert fit most appropriately. Attention drawn the patella. Patella was cleaned of all soft tissues. Patella measured 23 mm in thickness. And was cut down to 14. It was sized to a size 31 patella. Locals were drilled for 31 patella. The lateral osteophyte is moved. Patella button was placed. Knee was taken through range of motion patella tracked nicely with no thumbs test. Attention drawn to placing permanent components. All trial components were removed. A bone plug was placed in the distal femur limit blood loss. L batch Palacos G cement was mixed. I did add an additional gram of vancomycin due to his increased risk of infection considering his BMI, diabetes and other comorbidities. A Biomet Vanguard size system [address] abilized femoral component, size 75 tibial tray, a 10 mm posterior box polyethylene insert, and a 31 x 8 all polypatella then cemented in place. Knee was brought out in full extension total cement hardened. Final cement check was then performed. Pericapsular tissues were injected with total 100 cc of combination of 20 cc of Exparel, 30 cc normal saline, 50 cc of quarter percent Marcaine with epinephrine. Patient did receive 1 g tranexamic acid. The tourniquet was then let down for tourniquet time was 62 minutes. Hemostasis reduced electrocautery. The extensor mechanism closed with combination 1 PDS suture #1 Vicryl suture in [id number] fashion. Extensor mechanism checked found to be intact. Subcutaneous tissue then closed with 2 Dexon suture in a buried interrupted fashion. Skin was closed skin yoshi. Leg was then cleaned dried and a sterile dressing both Xeroform, 4 x 4's, sterile cast padding, Carmine bandage were applied. Patient then transferred to the recovery room in stable condition. The patient tolerated procedure well and there were no complications. Agusto Chappell, my physician assistant bookkeeper, was present for the entire procedure. His assistance was essential and required for appropriate patient positioning, prepping and draping, surgical exposure, performing the technical details of the operation, placement the implants, closure of the wound, and placement of the sterile bandage. I attest to the content of the Intraoperative Record and any orders documented therein. Any exceptions are noted below.
--- NOTE | 2020-05-03 15:29 | Anesthesiology Progress Note ---
Date of Service May 03, 2020 Anesthesia Post Procedure Vital Signs Vital Signs: Temp Pulse Pulse Resp BP Pulse Ox 05/03/20 15:20 95 H 16 104/63 93 05/03/20 15:12 36.6 C 83 16 115/65 94 05/03/20 10:54 36.7 C 97 H 18 151/84 H 96 Pain Intensity Right Knee: Pain Intensity: 3 Transfer of Care Handoff Completed per policy Notes Mental Status: alert / awake / arousable Patient Amnestic to Procedure: Yes Nausea / Vomiting: adequately controlled Pain: adequately controlled Airway Patency, RR, SpO2: stable & adequate BP & HR: stable & adequate Hydration State: stable & adequate Anesthetic Complications: no major complications apparent
--- NOTE | 2020-05-03 15:42 | XRay Report ---
XR knee RT 1 or 2V routine CLINICAL HISTORY: Surgical Post Op COMPARISON: None. DISCUSSION: There are postsurgical changes of a total right knee arthroplasty and patellar resurfacin g. The femoral and tibial components appear well seated. There is gas present within the soft tissues consistent with recent surgery. There are anterior skin yoshi. IMPRESSION: Postsurgical changes of a total right knee arthroplasty. ACT 112: Negative or not required by law. Electronically signed by: Dhruv Tellez M.D. 05/03/2020 3:41 PM
[2020-05-03] MEDS ORDERED: Scopolamine CHECK PATCH PLACEMENT SCH (16:00)
[2020-05-03] MEDS ORDERED: DEXTROSE 50% 50 ML SYRINGE IV PRN (16:15)
[2020-05-03] MEDS ORDERED: GLUCOSE 10 TABS/TUBE PO PRN (16:15)
[2020-05-03] MEDS ORDERED: NALOXONE HCL 0.4 MG/1 ML VIAL/CARP IV PRN (16:15)
[2020-05-03] MEDS ORDERED: GLUCOSE 40% GEL 15 GM TUBE PO PRN (16:15)
[2020-05-03] MEDS ORDERED: GLUCAGON FOR INJ 1 MG VIAL SQ PRN (16:15)
[2020-05-03] MEDS ORDERED: HYDROmorphone INJ 0.5 MG/0.5 ML SYR IV PRN (16:15)
[2020-05-03] MEDS ORDERED: bisacodyL 10 MG SUPP PR PRN (16:15)
[2020-05-03] MEDS ORDERED: MAGNESIUM HYDROXIDE SUSP 30 ML UDC PO PRN (16:15)
[2020-05-03] MEDS ORDERED: ALUMINUM/MAGNESIUM SUSP 30 ML UDC PO PRN (16:15)
[2020-05-03] MEDS ORDERED: TAMSULOSIN HCL 0.4 MG CAP PO PRN (16:15)
[2020-05-03] MEDS ORDERED: CARBOHYDRATES FOR HYPOGLYCEMIA PO PRN (16:15)
[2020-05-03] MEDS ORDERED: METOCLOPRAMIDE HCL INJ 5 MG/ML 2 ML VIAL IV PRN (16:15)
[2020-05-03] MEDS ORDERED: PNEUMOCOCCAL ADMINISTRATION CHARGE ONE (16:34)
[2020-05-03] MEDS ORDERED: PNEUMOCOCCAL POLYSACCHARIDES 25 MCG/0.5 ML VIAL/SYR IM ONE (16:34)
[2020-05-03] MEDS: SODIUM CHLORIDE 0.9% 1000ML 1,000 ML IV SCH (16:47)
[2020-05-03] MEDS ORDERED: PHARMACY GLYCEMIC MGMT CONSULT PRN (16:58)
[2020-05-03] MEDS: MISSING PHYSICIAN SIGNATURE ON ORDER SCH ×3 (18:17→18:19)
[2020-05-03] MEDS ORDERED: WARFARIN SOD 10 MG TAB PO ONE (18:30)
[2020-05-03] MEDS: ASCORBIC ACID 500 MG TAB PO SCH (18:53)
[2020-05-03] MEDS: FERROUS GLUCONATE 324 MG TAB PO SCH (18:53)
[2020-05-03] MEDS: KETOROLAC TROMETHAMINE 15 MG/ML VIAL IV SCH (18:55)
[2020-05-03] MEDS: INSULIN ASPART 100 UNITS/ML 3 ML PEN SC SCH ×2 (18:56→22:00)
[2020-05-03] MEDS ORDERED: INSULIN GLARGINE SOLOSTAR 100 UNITS/ML 3 ML PEN SC SCH (21:00)
[2020-05-03] MEDS ORDERED: SENNA 8.6 MG TAB PO SCH (21:00)
[2020-05-03] MEDS: ceFAZolin 2000MG 2,000 MG/15 ML SYR IV SCH (21:54)
[2020-05-03] MEDS: DOCUSATE SODIUM 100 MG CAP PO SCH (21:54)
[2020-05-03] MEDS: TAPENTADOL HCL ER 50 MG TABCR PO SCH (21:54)
[2020-05-03] MEDS: ACETAMINOPHEN 500 MG TAB PO SCH (21:55)
[2020-05-03] MEDS: oxyCODONE HCL IR 5 MG TAB (IMMEDIATE RELEASE) PO PRN (22:05)
[2020-05-04] MEDS: KETOROLAC TROMETHAMINE 15 MG/ML VIAL IV SCH ×3 (01:23→12:30)
[2020-05-04] MEDS: SODIUM CHLORIDE 0.9% 1000ML 1,000 ML IV SCH (01:23)
[2020-05-04] MEDS: ceFAZolin 2000MG 2,000 MG/15 ML SYR IV SCH (03:39)
[2020-05-04 05:56] LABS: Hematocrit (blood only) 39.3 % (42-52); Mean Corpuscular Hemoglobin 33.2 pg (25-34); Mean Corpuscular Hgb Conc 33.1 g/dL (32-36); Mean Corpuscular Volume 100.3 fL (80-100); Mean Platelet Volume 9.3 fL (7.4-10.4); Platelet Count 154 K/uL (130-400); RDW Coefficient of Variation 13.9 % (11.5-14.5); RDW Standard Deviation 50.8 fL (36.4-46.3); Red Blood Count 3.92 M/uL (4.7-6.1); White Blood Count 6.46 K/uL (4.8-10.8)
[2020-05-04 06:19] LABS: INR 1.1 (0.9-1.1); Prothrombin Time 10.7 Seconds (9.0-12.0)
[2020-05-04 06:24] LABS: BUN Creatinine Ratio 12.5 (10-20); Creatinine Clr Calc Pharmacy 83.4 ml/min; Est GFR (African American) 68.8; Est GFR (Non-African American) 59.4; Potassium 4.4 mmol/L (3.5-5.1)
[2020-05-04] MEDS: ACETAMINOPHEN 500 MG TAB PO SCH (06:27)
[2020-05-04] MEDS: FERROUS GLUCONATE 324 MG TAB PO SCH (07:54)
[2020-05-04] MEDS: ASCORBIC ACID 500 MG TAB PO SCH (07:54)
[2020-05-04] MEDS ORDERED: MULTIVITAMIN TAB PO SCH (09:00)
[2020-05-04] MEDS ORDERED: FUROSEMIDE 40 MG TAB PO SCH (09:00)
[2020-05-04] MEDS ORDERED: EZETIMIBE 10 MG TABLET PO SCH (09:00)
[2020-05-04] MEDS ORDERED: INSULIN GLARGINE SOLOSTAR 100 UNITS/ML 3 ML PEN SC SCH (09:00)
[2020-05-04] MEDS ORDERED: lisinopril 5 MG TAB PO SCH (09:00)
[2020-05-04] MEDS ORDERED: PARoxetine HCL 20 MG TAB PO SCH (09:00)
[2020-05-04] MEDS ORDERED: GLIMEPIRIDE 2 MG TAB PO SCH (09:00)
[2020-05-04] MEDS ORDERED: WARFARIN SOD 7.5 MG TAB PO ONE (09:00)
[2020-05-04] MEDS ORDERED: DULoxetine HCL 60 MG CAP PO SCH (09:00)
[2020-05-04] MEDS: DOCUSATE SODIUM 100 MG CAP PO SCH (09:05)
[2020-05-04] MEDS: TAPENTADOL HCL ER 50 MG TABCR PO SCH (09:05)
[2020-05-04] MEDS: INSULIN ASPART 100 UNITS/ML 3 ML PEN SC SCH ×2 (09:11→12:51)
--- NOTE | 2020-05-04 09:24 | Progress Notes ---
DATE: 05/04/2020 SUBJECTIVE: A 70-year-old gentleman postop day 1 from a right knee replacement. He is doing pretty well. Pain is controlled. He had a good night. He feels like he wants to go home this afternoon if possible. OBJECTIVE: VITAL SIGNS: Temperature 36.9. Vital signs stable. GENERAL: Shows a pleasant elderly male. He is lying in bed, looks pretty comfortable. LUNGS: Clear to auscultation. HEART: Regular rate and rhythm. ABDOMEN: Soft, nontender, nondistended. EXTREMITIES: Grossly neurovascularly intact except as follows. Examination of the right leg reveals the leg to be well aligned. He can dorsiflex and plantarflex his foot appropriately. He is neurologically intact. He can do a straight leg raise. LABORATORY DATA: Hemoglobin is 13.0. Hematocrit 39.3. Electrolytes are stable. His INR is 1.1. ASSESSMENT: A 70-year-old gentleman postop day 1 from right knee replacement. He does have a history of a deep venous thrombosis/pulmonary embolism in the past and on chronic anticoagulation. His pain is controlled. He is neurologically intact. PLAN: 1. DVT prophylaxis including thigh-high TEDs, SCDs, and now we started him back on his Coumadin. We will give him 1 dose of Lovenox likely today if he goes home and resume his Coumadin. 2. PT/OT. Weight bear as tolerated. Right total knee protocol. 3. Pain control, doing well with current pain regimen. 4. Disposition. Plan to discharge to home with some home health. We will see how therapy goes today.
--- NOTE | 2020-05-04 11:01 | Pharmacy Report ---
Pharmacy Glycemic Short Note 2 - Date of Service May 04, 2020 - Glycemic Short BSG Results (Last 24 hours): 05/03/20 05/03/20 05/03/20 10:57 15:16 17:16 Glucose POC Glucose 276 H 222 H 213 H 05/03/20 05/04/20 05/04/20 21:22 05:35 08:12 Glucose 161 H POC Glucose 238 H 192 H OUTPATIENT ANTIDIABETIC REGIMEN: * glimepiride 1 mg qam * 7.8% 02/28/20 ASSESSMENT: * Patient is s/p R TKA, type 2 diabetic managed on glimepiride at home. Pharmacy consulted to help with glycemic management postop * Patient did not receive steroids, however BSGs in 200s postop likely related to stress from surgery * Received total of 36 units of insulin yesterday, of which 18 were basal insulin * Fasting BSG 161 mg/dL - will split basal dose in half and continue 10 units BID * Tighten CR this AM PLAN FOR INPATIENT GLYCEMIC CONTROL: * Hold outpatient oral diabetes medications * Basal insulin * Lantus 10 units bid * Bolus insulin * NovoLog per scale ACHS or Q6hrs while NPO * Goal Range: Low 120 mg/dL - High 150 mg/dL * Correction Factor: 20 mg/dL/unit * Nutritional / Prandial insulin per carb ratio of 1 unit per 6 grams CHO consumed PLAN FOR DISCHARGE: * A1c 7.8% - goal ~7% reasonable * Would recommend continuation of home diabetic agent on discharge as long as no contraindications exist * Would encourage healthy lifestyle (diet, exercise) and SMBG
[2020-05-04] MEDS: ENOXAPARIN INJ 30 MG/0.3 ML SYR SQ SCH ×2 (12:26→12:29)
[2020-05-04] MEDS: oxyCODONE HCL IR 5 MG TAB (IMMEDIATE RELEASE) PO PRN (12:50)
[2020-05-04] MEDS ORDERED: DIGOXIN 0.25 MG TAB PO SCH (16:00)
--- NOTE | 2020-05-06 15:53 | Discharge Summary ---
Date of Service May 06, 2020 Discharge Data Consultations 05/03/20 16:15 Consult Case Management - Discharge Planning Routine Procedures Performed Operation Date: 05/03/20 12:30 Actual Procedures p Right Total Knee Arthroplasty(Right) - Jn Milner MD Hospital Course (1) Status post total right knee replacement: This patient is a 70 year old male admitted on 05/03/20 and underwent total knee arthroplasty. He tolerated the procedure well and there were no complications. Transferred to the PACU post op and later to the orthopedic floor for further care. He was given ancef for antibiotic prophylaxis. He was also given TIGIST stockings, SCDs, and coumadin for DVT prophylaxis. He was given a dose of lovenox prior to discharge. Hemoglobin, hematocrit, and vital signs were monitored during his hospital stay and remained stable. Did not require any blood transfusions. There were no complications during his hospital stay. By post op day #1 the patient was tolerating a diabetic diet, pain was reasonably controlled with oral pain medicine, and he was participating in physical therapy. On post op day #1 the patient was discharged home and set up with home health care. He was given printed discharge instructions including prescriptions for extra strength tylenol and oxycodone. Continue physical therapy, weight bearing as tolerated. Continue TIGIST stockings. Follow up approximately 2 weeks post op or sooner if there are problems or concerns. Coding Level of Care Code None Diagnoses Status post total right knee replacement Z96.651
== END 2020-05-04 13:25 | disposition home health service (06) ==
LOC: ASU 10:18 → 3E 10:18